=== PATIENT | female | born 1940 | race Hispanic/Latino ===

== ENCOUNTER 2017-12-19 11:57 | Emergency (ER) | payer MEDICARE ==
[2017-12-19] MEDS ORDERED: MECLIZINE HCL 25 MG TABLET ONE (12:30)
[2017-12-19 12:46] LABS: EOSINOPHILS % (AUTO) 1.4 % (0.0-8.0); HEMATOCRIT 33.2 % (36-48); LYMPHOCYTES % (AUTO) 39.9 % (21.0-51.0); MEAN CORPUSCULAR HEMOGLOBIN 32.3 pg (27.0-33.0); MEAN CORPUSCULAR HGB CONC 35.5 g/dL (32.0-36.0); MONOCYTES % (AUTO) 7.5 % (3.0-13.0); NEUTROPHILS % (AUTO) 50.2 % (40.0-77.0); PLATELET COUNT (AUTO) 169 K/uL (130-400); RED BLOOD CELL COUNT(AUTO) 3.65 MIL/uL (4.00-5.50); RED CELL DISTRIBUTION WIDTH 12.4 % (11.0-15.5); WHITE BLOOD COUNT (AUTO) 5.9 K/uL (4.8-10.8)
[2017-12-19 12:56] LABS: PARTIAL THROMBOPLASTIN TIME 24.7 SEC (26.3-35.5); PROTHROMBIN TIME 10.5 SEC (9.6-11.6)
[2017-12-19 12:58] LABS: CREATININE 0.7 mg/dL (0.5-1.5); POTASSIUM 3.3 mmol/L (3.5-5.1)
[2017-12-19 13:12] LABS: ALBUMIN 3.7 g/dL (3.5-5.0); BILIRUBIN,TOTAL 0.4 mg/dL (0.2-1.0); CREATINE KINASE MB 1.9 ng/mL (0.5-3.6); TOTAL PROTEIN, SERUM 7.3 g/dL (6.0-8.3)
== END 2017-12-19 15:38 | disposition home or self-care (01) ==
LOC: EDH 11:57
DX: H81.10 Benign paroxysmal vertigo, unspecified ear (principal); R00.2 Palpitations; Z79.84 Long term (current) use of oral hypoglycemic drugs; Z79.899 Other long term (current) drug therapy; Z98.890 Other specified postprocedural states
CPT/HCPCS: 36415; 70450; 71046; 80053; 82550; 82553; 84484; 85025; 85610; 85730; 87804; 93005

== ENCOUNTER 2018-02-09 16:00 | Inpatient (IN) | payer MEDICARE ==
[~2018-02-09] VITALS: Ht 151.1 cm; Wt 67.9 kg
[2018-02-09 15:53] VITALS: BP 123/54
[2018-02-09 16:03] LABS: BASOPHILS % (AUTO) 0.7 % (0.0-5.0); EOSINOPHILS % (AUTO) 1.7 % (0.0-8.0); HEMATOCRIT 33.4 % (36-48); LYMPHOCYTES % (AUTO) 36.8 % (21.0-51.0); MEAN CORPUSCULAR HEMOGLOBIN 31.7 pg (27.0-33.0); MEAN CORPUSCULAR HGB CONC 34.5 g/dL (32.0-36.0); MONOCYTES % (AUTO) 6.1 % (3.0-13.0); NEUTROPHILS % (AUTO) 54.7 % (40.0-77.0); PLATELET COUNT (AUTO) 154 K/uL (130-400); RED BLOOD CELL COUNT(AUTO) 3.63 MIL/uL (4.00-5.50); RED CELL DISTRIBUTION WIDTH 12.6 % (11.0-15.5); WHITE BLOOD COUNT (AUTO) 6.3 K/uL (4.8-10.8)
[2018-02-09 16:03] LABS: APPEARANCE,URINE Clear (CLEAR); BILIRUBIN,URINE Negative (NEGATIVE); COLOR,URINE Yellow (YELLOW); GLUCOSE, URINE (UA) TRACE mg/dL (NEGATIVE); KETONES,URINE Negative (NEGATIVE); LEUKOCYTE ESTERASE ,URINE Negative (NEGATIVE); NITRATE,URINE Negative (NEGATIVE); OCCULT BLOOD,URINE Trace (NEGATIVE); PROTEIN,URINE Negative (NEGATIVE); UROBILINOGEN,URINE 0.2 mg/dL (0.2-1.0)
[2018-02-09 16:12] LABS: BACTERIA,URINE Rare /HPF (None Seen); RBC,URINE None Seen /HPF (0-1); SQUAMOUS EPITHELIAL CELL,UR 0-2 /HPF (0-2); WBC,URINE 0-1 /HPF (0-1)
[2018-02-09 16:14] LABS: CREATININE 0.9 mg/dL (0.5-1.5); POTASSIUM 4.1 mmol/L (3.5-5.1)
[2018-02-09] MEDS ORDERED: METF500T6 PO (16:17)
[2018-02-09] MEDS ORDERED: LISI10TA7 PO (16:17)
[2018-02-09] MEDS ORDERED: LOVA40TA2 PO (16:17)
[2018-02-09] MEDS ORDERED: FISH1CAP49 PO (16:17)
[2018-02-09 16:18] LABS: INR 0.96 (0.85-1.15); PROTHROMBIN TIME 10.1 SEC (9.6-11.6)
[2018-02-10] VITALS (46 sets, daily range): BP systolic 91–128; BP diastolic 32–64
[2018-02-10] MEDS: CEFAZOLIN SODIUM 1 GM VIAL IVP SCH ×3 (09:30→21:20)
[2018-02-10] MEDS ORDERED: SODIUM CHLORIDE 0.9% 1000ML 1,000 ML IV ONE (09:42)
[2018-02-10] MEDS ORDERED: FOLI1TAB15 PO (10:00)
[2018-02-10] MEDS ORDERED: ACETAMINOPHEN EXTRA STRENGTH 500 MG TABLET ONE (11:51)
[2018-02-10] MEDS ORDERED: KETOROLAC TROMETHAMINE 15MG/ML ONE (11:52)
[2018-02-10] MEDS ORDERED: CELECOXIB 200 MG CAP ONE (11:52)
[2018-02-10] MEDS ORDERED: OXYCODONE HCL 10 MG TAB.SR.12H PO ONE (11:52)
[2018-02-10] MEDS ORDERED: CEFAZOLIN SODIUM 1 GM VIAL ONE (12:44)
[2018-02-10] MEDS ORDERED: TRANEXAMIC ACID 1000MG/10ML IV ONE (12:44)
[2018-02-10] MEDS ORDERED: BUPIVACAINE/EPI/PF 0.25% 30ML VIAL IJ ONE (12:44)
[2018-02-10] MEDS ORDERED: PROPOFOL 10 MG/ML 20ML VIAL IV ONE (13:12)
[2018-02-10] MEDS ORDERED: MIDAZOLAM HCL 1 MG/ML 2ML VIAL ONE (13:12)
[2018-02-10] MEDS ORDERED: FENTANYL CITRATE PF 50 MCG/1 ML 2ML VIAL ONE ×4 (13:12→15:46)
[2018-02-10] MEDS ORDERED: EPHEDRINE SULFATE 50 MG/ML AMPULE ONE ×2 (13:23→19:07)
[2018-02-10] MEDS ORDERED: CEFAZOLIN SODIUM 1 GM VIAL IRRIG ONE (14:19)
[2018-02-10] MEDS ORDERED: ROCURONIUM BROMIDE 10MG/1ML 5ML VL ONE ×2 (14:33→14:34)
[2018-02-10] MEDS ORDERED: GLYCOPYRROLATE 0.2 MG/ML 5 ML VIAL ONE (14:33)
[2018-02-10] MEDS ORDERED: LIDOCAINE PF 2% 5ML ABBOJECT ONE (14:33)
[2018-02-10] MEDS ORDERED: ROPIVACAINE 0.5% 5MG/ML 30ML IJ ONE (14:33)
[2018-02-10] MEDS ORDERED: NEOSTIGMINE 5MG/5ML SYR IV ONE (14:33)
[2018-02-10] MEDS ORDERED: SODIUM CHLORIDE 0.9% 10 ML VIAL ONE (14:33)
[2018-02-10] MEDS ORDERED: PHENYLEPHRINE HCL 10 MG/ML 1ML VIAL IV ONE (14:33)
[2018-02-10] MEDS ORDERED: ESMOLOL HCL 10 MG/ML 10 ML VIAL ONE (15:24)
[2018-02-10] MEDS ORDERED: ACETAMINOPHEN EXTRA STRENGTH 500 MG TABLET PO PRN (16:30)
[2018-02-10] MEDS ORDERED: FERROUS FUMARATE 324 MG TABLET PO PRN (16:30)
[2018-02-10] MEDS ORDERED: TEMAZEPAM 15 MG CAPSULE PO PRN (16:30)
[2018-02-10] MEDS ORDERED: POTASSIUM CHLORIDE 20MEQ/100ML 100 ML IV PRN (16:30)
[2018-02-10] MEDS ORDERED: DiphenhydrAMINE HCL 50 MG/ML VIAL IVP PRN (16:30)
[2018-02-10] MEDS ORDERED: PROMETHAZINE HCL 25 MG/ML 1ML AMPULE IM PRN (16:30)
[2018-02-10] MEDS ORDERED: POTASSIUM CHLORIDE 10% ELIXIR 20 MEQ/15 ML UDCUP PO PRN (16:30)
[2018-02-10] MEDS ORDERED: KETOROLAC TROMETHAMINE 15MG/ML IV PRN (16:30)
[2018-02-10] MEDS ORDERED: OXYCODONE HCL 5 MG TAB PO PRN (16:30)
[2018-02-10] MEDS ORDERED: LIDOCAINE HCL-MPF 1% 2ML VIAL IVP PRN (16:30)
[2018-02-10] MEDS ORDERED: DIPHENHYDRAMINE HCL 25 MG CAPSULE PO PRN (16:30)
[2018-02-10] MEDS: INSULIN HUMULIN R 100 UNIT/ML 3ML SQ SCH ×2 (16:30→21:00)
[2018-02-10] MEDS ORDERED: NALOXONE HCL 0.4 MG/1 ML ML ONE (17:52)
[2018-02-10] MEDS: SODIUM CHLORIDE 0.9% 1000ML 1,000 ML IV SCH (21:07)
[2018-02-10] MEDS ORDERED: CEFAZOLIN 2GM / 50 ML 50 ML IV SCH (21:30)
[2018-02-11 00:40] VITALS: BP 101/53
[2018-02-11] MEDS: PREGABALIN 25 MG CAP PO SCH ×3 (02:09→19:29)
[2018-02-11] MEDS: CELECOXIB 200 MG CAP PO SCH ×3 (02:09→19:28)
[2018-02-11] MEDS: FAMOTIDINE 20MG TAB 20 MG TAB PO SCH ×3 (02:09→19:28)
[2018-02-11] MEDS: ASPIRIN 325 MG TABLET PO SCH ×3 (02:09→19:28)
[2018-02-11] MEDS: SODIUM CHLORIDE 0.9% 1000ML 1,000 ML IV SCH (02:11)
[2018-02-11 04:00] VITALS: BP 116/55
[2018-02-11] MEDS: OXYCODONE HCL 5 MG TAB PO PRN ×2 (04:03→19:29)
[2018-02-11] MEDS: CEFAZOLIN SODIUM 1 GM VIAL IVP SCH (04:55)
[2018-02-11] MEDS: INSULIN HUMULIN R 100 UNIT/ML 3ML SQ SCH ×4 (05:58→21:00)
[2018-02-11 06:13] LABS: CREATININE 0.8 mg/dL (0.5-1.5); POTASSIUM 4.7 mmol/L (3.5-5.1)
[2018-02-11 06:35] LABS: MEAN CORPUSCULAR HEMOGLOBIN 31.4 pg (27.0-33.0); MEAN CORPUSCULAR HGB CONC 34.4 g/dL (32.0-36.0); MEAN CORPUSCULAR VOLUME 91.2 fL (79-99); PLATELET COUNT (AUTO) 104 K/uL (130-400); RED BLOOD CELL COUNT(AUTO) 2.23 MIL/uL (4.00-5.50); RED CELL DISTRIBUTION WIDTH 12.5 % (11.0-15.5); WHITE BLOOD COUNT (AUTO) 9.2 K/uL (4.8-10.8)
[2018-02-11 06:39] LABS: HEMATOCRIT 20.3 % (36-48)
[2018-02-11 08:02] VITALS: BP 108/52
[2018-02-11] MEDS: LISINOPRIL 10 MG TABLET PO SCH (08:35)
[2018-02-11] MEDS: FISH OIL 1000 MG/CAP PO SCH (08:35)
[2018-02-11] MEDS: CALCIUM CARBONATE 500 MG TABLET PO PRN ×2 (08:35→19:29)
[2018-02-11] MEDS: TRAMADOL HCL 50 MG TABLET PO PRN (08:35)
[2018-02-11] MEDS: POLYETHYLENE GLYCOL 3350 17 GM POWD.PACK PO SCH (08:36)
[2018-02-11 11:38] VITALS: BP 85/51
[2018-02-11] MEDS: PSYLLIUM SEED 1 EACH PACKET PO SCH (11:48)
[2018-02-11] MEDS: FOLIC ACID 1 MG TABLET PO SCH (11:48)
[2018-02-11] MEDS: FUROSEMIDE 10 MG/ML 2ML VIAL IV SCH ×2 (13:59→17:30)
[2018-02-11] MEDS: METFORMIN HCL 500 MG TABLET PO SCH (17:14)
[2018-02-11 17:28] VITALS: BP 102/56
[2018-02-11] MEDS: ATORVASTATIN CALCIUM 10 MG TABLET PO SCH (19:34)
[2018-02-11 20:00] VITALS: BP 128/52
[2018-02-12] VITALS (7 sets, daily range): BP systolic 87–113; BP diastolic 39–71
[2018-02-12 05:01] LABS: HEMATOCRIT 25.9 % (36-48); MEAN CORPUSCULAR HEMOGLOBIN 30.9 pg (27.0-33.0); MEAN CORPUSCULAR HGB CONC 35.4 g/dL (32.0-36.0); MEAN CORPUSCULAR VOLUME 87.1 fL (79-99); PLATELET COUNT (AUTO) 84 K/uL (130-400); RED BLOOD CELL COUNT(AUTO) 2.98 MIL/uL (4.00-5.50); RED CELL DISTRIBUTION WIDTH 13.2 % (11.0-15.5); WHITE BLOOD COUNT (AUTO) 10.1 K/uL (4.8-10.8)
[2018-02-12 05:12] LABS: CREATININE 0.8 mg/dL (0.5-1.5); POTASSIUM 3.5 mmol/L (3.5-5.1)
[2018-02-12] MEDS: INSULIN HUMULIN R 100 UNIT/ML 3ML SQ SCH ×4 (05:45→21:00)
[2018-02-12] MEDS: POTASSIUM CHLORIDE 20 MEQ ERTAB PO PRN ×2 (06:09→19:39)
[2018-02-12] MEDS: POLYETHYLENE GLYCOL 3350 17 GM POWD.PACK PO SCH (08:14)
[2018-02-12] MEDS: ASPIRIN 325 MG TABLET PO SCH ×2 (08:14→22:02)
[2018-02-12] MEDS: FISH OIL 1000 MG/CAP PO SCH (08:14)
[2018-02-12] MEDS: CELECOXIB 200 MG CAP PO SCH ×2 (08:14→22:02)
[2018-02-12] MEDS: FAMOTIDINE 20MG TAB 20 MG TAB PO SCH ×2 (08:14→22:01)
[2018-02-12] MEDS: FOLIC ACID 1 MG TABLET PO SCH (08:17)
[2018-02-12] MEDS: LISINOPRIL 10 MG TABLET PO SCH (09:00)
[2018-02-12] MEDS: PREGABALIN 25 MG CAP PO SCH ×2 (10:24→22:02)
[2018-02-12] MEDS: PSYLLIUM SEED 1 EACH PACKET PO SCH (12:24)
[2018-02-12] MEDS ORDERED: BISACODYL 5 MG TABLET.DR PO PRN (16:30)
[2018-02-12] MEDS: METFORMIN HCL 500 MG TABLET PO SCH (17:00)
[2018-02-12] MEDS: CALCIUM CARBONATE 500 MG TABLET PO PRN (19:39)
[2018-02-12] MEDS: ATORVASTATIN CALCIUM 10 MG TABLET PO SCH (22:02)
[2018-02-12] MEDS: TRAMADOL HCL 50 MG TABLET PO PRN (22:05)
[2018-02-13] MEDS ORDERED: BISACODYL 10 MG SUPP.RECT RC PRN (16:30)
== END 2018-02-13 01:15 | DRG 470 ==
LOC: EDSTATUS 16:00 → DAHIP 02-10 08:17 → 4AH 02-10 18:27
PROVIDERS: ADMIT Orthopaedic Surgery; ATTEND Orthopaedic Surgery
PROC: 0SRB0JZ Replacement of Left Hip Joint with Synthetic Substitute, Open Approach (ICD-10-PCS; principal; 2018-02-10 13:00)
PROC: 30233N1 Transfusion of Nonautologous Red Blood Cells into Peripheral Vein, Percutaneous Approach (ICD-10-PCS; 2018-02-11)
DX: M16.12 Unilateral primary osteoarthritis, left hip (principal); E11.40 Type 2 diabetes mellitus with diabetic neuropathy, unspecified; I10 Essential (primary) hypertension; E78.5 Hyperlipidemia, unspecified; M54.16 Radiculopathy, lumbar region; M19.90 Unspecified osteoarthritis, unspecified site; F32.9 Major depressive disorder, single episode, unspecified; F41.9 Anxiety disorder, unspecified; M81.0 Age-related osteoporosis without current pathological fracture; E53.8 Deficiency of other specified B group vitamins; G89.29 Other chronic pain; R26.9 Unspecified abnormalities of gait and mobility; E55.9 Vitamin D deficiency, unspecified; Z83.3 Family history of diabetes mellitus; Z82.49 Family history of ischemic heart disease and other diseases of the circulatory system; Z90.710 Acquired absence of both cervix and uterus; Z79.4 Long term (current) use of insulin
CPT/HCPCS: 36415; 36430; 73503; 80048; 81001; 82948; 85025; 85027; 85610; 85730; 86850; 86900; 86901; 86922; 88304; 88311; 97039; A4218; A4344; C1776; J0690; J1885; J1940; J2001; J2250; J2310; J2370; J2704; J2710; J2795; J3010; J3490; J7030; P9016

== ENCOUNTER 2020-06-13 10:00 | Observation (INO) | payer OTHER, MEDICARE ==
[~2020-06-13] VITALS: Ht 149.9 cm; Wt 66.2 kg
[~2020-06-13 10:00] MED LIST: METF-444 PO
[2020-06-13 10:52] LABS: BASOPHILS % (AUTO) 0.9 % (0.0-5.0); EOSINOPHILS % (AUTO) 1.8 % (0.0-8.0); HEMATOCRIT 35.5 % (36-48); MONOCYTES % (AUTO) 7.1 % (3.0-13.0); NEUTROPHILS % (AUTO) 56.8 % (40.0-77.0); PLATELET COUNT (AUTO) 147 K/uL (130-400); RED BLOOD CELL COUNT(AUTO) 3.66 MIL/uL (4.00-5.50); RED CELL DISTRIBUTION WIDTH 12.8 % (11.0-15.5); WHITE BLOOD COUNT (AUTO) 5.5 K/uL (4.8-10.8)
[2020-06-13 11:03] LABS: APPEARANCE,URINE Clear (CLEAR); BILIRUBIN,URINE Negative (NEGATIVE); COLOR,URINE Yellow (YELLOW); GLUCOSE, URINE (UA) TRACE mg/dL (NEGATIVE); KETONES,URINE Negative (NEGATIVE); LEUKOCYTE ESTERASE ,URINE Trace (NEGATIVE); NITRATE,URINE Negative (NEGATIVE); OCCULT BLOOD,URINE Nonhemolyzed Trace (NEGATIVE); PH,URINE 5.5 (5.0-8.0); PROTEIN,URINE Trace mg/dL (NEGATIVE)
[2020-06-13 11:03] LABS: INR 0.98 (0.85-1.15); PROTHROMBIN TIME 10.6 SEC (9.6-11.6)
[2020-06-13 11:05] LABS: CREATININE 0.7 mg/dL (0.5-1.5); POTASSIUM 4.3 mmol/L (3.5-5.1)
[2020-06-13 11:21] LABS: BACTERIA,URINE Rare /HPF (None Seen); RBC,URINE 0-1 /HPF (0-1); SQUAMOUS EPITHELIAL CELL,UR Few /HPF (0-2)
--- NOTE | 2020-06-19 10:20 | NUR ---
REPORT CALLED DR CHUNG AND REPORTED UA. RECEIVED NEW ORDERS TO COLLECT URINE FOR CULTURE AND GIVE GENTAMYCIN 240MG IVPB X1 IN AM
[2020-06-19 13:26] VITALS: BP 131/51
[2020-06-19] MEDS ORDERED: ROSU20TA23 PO (13:54)
[2020-06-19] MEDS ORDERED: SITA25TA5 PO (13:54)
[2020-06-20] VITALS (33 sets, daily range): BP systolic 94–142; BP diastolic 50–94
[2020-06-20] MEDS ORDERED: CEFAZOLIN SODIUM 1 GM VIAL IVP ONE (08:00)
[2020-06-20] MEDS ORDERED: GENTAMICIN SULFATE 240 MG in SODIUM CHLORIDE 0.9% 100 ML IV PRN (08:00)
[2020-06-20] MEDS ORDERED: SODIUM CHLORIDE 0.9% 1000ML 1,000 ML IV ONE (09:00)
--- NOTE | 2020-06-20 09:30 | NUR ---
preop pt arrived via w/c. pt oriented to room and call light. pt in no distress at this time. urine collected and sent for culture. type and screen also will be collected. will continue to monitor pt
[2020-06-20] MEDS ORDERED: CEFAZOLIN SODIUM 1 GM VIAL ONE (12:47)
[2020-06-20] MEDS ORDERED: LIDOCAINE PF 2% 5ML ABBOJECT ONE (13:57)
[2020-06-20] MEDS ORDERED: SUCCINYLCHOLINE CHLORIDE 20 MG/ML 10 ML VIAL ONE (13:57)
[2020-06-20] MEDS ORDERED: PROPOFOL 10 MG/ML 20ML VIAL IV ONE (13:58)
[2020-06-20] MEDS ORDERED: ROCURONIUM 10MG/1ML SYR 10 MG/ML ML ONE (13:58)
[2020-06-20] MEDS ORDERED: TRANEXAMIC ACID 1000MG/10ML ONE ×2 (14:06→17:43)
[2020-06-20] MEDS ORDERED: CEFAZOLIN SODIUM 1 GM VIAL IRRIG ONE (15:30)
[2020-06-20] MEDS ORDERED: FENTANYL CITRATE PF 50 MCG/1 ML 2ML VIAL ONE (15:33)
[2020-06-20] MEDS ORDERED: ONDANSETRON HCL 4 MG/2 ML VIAL ONE ×2 (16:59→19:26)
[2020-06-20] MEDS ORDERED: NEOSTIGMINE 5MG/5ML SYR IV ONE (16:59)
[2020-06-20] MEDS ORDERED: GLYCOPYRROLATE 1 MG/5 ML SYRINGE ONE (16:59)
[2020-06-20] MEDS ORDERED: MEPERIDINE-PF 25 MG/ML SYG ONE ×2 (18:05→18:14)
[2020-06-20] MEDS: SODIUM CHLORIDE 0.9% 1000ML 1,000 ML IV SCH (18:58)
[2020-06-20] MEDS ORDERED: DiphenhydrAMINE HCL 50 MG/ML VIAL IVP PRN (19:00)
[2020-06-20] MEDS ORDERED: OXYCODONE HCL 5 MG TAB PO PRN (19:00)
[2020-06-20] MEDS ORDERED: ONDANSETRON HCL 4 MG/2 ML VIAL IVP PRN (19:00)
[2020-06-20] MEDS ORDERED: FERROUS FUMARATE 324 MG TABLET PO PRN (19:00)
[2020-06-20] MEDS ORDERED: POTASSIUM CHLORIDE 10% ELIXIR 20 MEQ/15 ML UDCUP PO PRN (19:00)
[2020-06-20] MEDS: ACETAMINOPHEN EXTRA STRENGTH 500 MG TABLET PO SCH (19:00)
[2020-06-20] MEDS ORDERED: TRAMADOL HCL 50 MG TABLET PO PRN (19:00)
[2020-06-20] MEDS ORDERED: POTASSIUM CHLORIDE 20 MEQ ERTAB PO PRN (19:00)
[2020-06-20] MEDS ORDERED: POTASSIUM CHLORIDE 20MEQ/100ML 100 ML IV PRN (19:00)
[2020-06-20] MEDS ORDERED: LIDOCAINE HCL-MPF 1% 2ML VIAL IV PRN (19:00)
--- NOTE | 2020-06-20 20:15 | NUR ---
post op received patient from pacu via bed, patient awake, alert, ox3, no sob, no c/o pain at this time, right hip with selvin dressing with negative pressure, ble scds in place, ivf infusing well, teach patient plan of care , pain management and expected outcome, patient verbalizes understanding via teach back
[2020-06-20] MEDS: INSULIN HUMULIN R 100 UNIT/ML 3ML SQ SCH (21:00)
[2020-06-20] MEDS: OXYCODONE HCL 5 MG TAB PO PRN (21:17)
[2020-06-20] MEDS: ASPIRIN 81MG TAB.CHEW PO SCH (21:17)
[2020-06-20] MEDS: CELECOXIB 200 MG CAP PO SCH (21:17)
[2020-06-20] MEDS: PREGABALIN 25 MG CAP PO SCH (21:17)
[2020-06-20] MEDS: KETOROLAC TROMETHAMINE 15MG/ML IV PRN (22:45)
[2020-06-21] VITALS (8 sets, daily range): BP systolic 92–128; BP diastolic 41–75
[2020-06-21] MEDS: CEFAZOLIN SODIUM 1 GM VIAL IVP SCH ×2 (00:20→08:45)
[2020-06-21] MEDS: SODIUM CHLORIDE 0.9% 1000ML 1,000 ML IV SCH ×2 (01:16→14:58)
[2020-06-21] MEDS: OXYCODONE HCL 5 MG TAB PO PRN ×2 (01:42→08:48)
[2020-06-21] MEDS: ACETAMINOPHEN EXTRA STRENGTH 500 MG TABLET PO SCH ×3 (01:43→19:14)
[2020-06-21 04:02] LABS: HEMATOCRIT 23.8 % (36-48); MEAN CORPUSCULAR HEMOGLOBIN 32.3 pg (27.0-33.0); MEAN CORPUSCULAR VOLUME 94.8 fL (79-99); RED BLOOD CELL COUNT(AUTO) 2.51 MIL/uL (4.00-5.50); RED CELL DISTRIBUTION WIDTH 12.5 % (11.0-15.5)
[2020-06-21 04:23] LABS: CREATININE 0.7 mg/dL (0.5-1.5); POTASSIUM 4.2 mmol/L (3.5-5.1)
[2020-06-21] MEDS: KETOROLAC TROMETHAMINE 15MG/ML IV PRN (04:34)
[2020-06-21] MEDS: INSULIN HUMULIN R 100 UNIT/ML 3ML SQ SCH ×4 (06:02→21:00)
[2020-06-21] MEDS: FAMOTIDINE 20MG TAB 20 MG TAB PO SCH (08:45)
[2020-06-21] MEDS: METFORMIN HCL 500 MG TABLET PO SCH (08:45)
[2020-06-21] MEDS: CALCIUM CARBONATE 500 MG TABLET PO PRN (08:45)
[2020-06-21] MEDS: ASPIRIN 81MG TAB.CHEW PO SCH ×2 (08:46→20:51)
[2020-06-21] MEDS: LINAGLIPTIN 5 MG TABLET PO SCH (08:46)
[2020-06-21] MEDS: POLYETHYLENE GLYCOL 3350 17 GM POWD.PACK PO SCH (08:50)
[2020-06-21] MEDS: CELECOXIB 200 MG CAP PO SCH ×2 (08:50→20:52)
[2020-06-21] MEDS: PREGABALIN 25 MG CAP PO SCH ×2 (08:51→20:52)
--- NOTE | 2020-06-21 11:00 | NUR ---
DCP CM met with pt discussed dc plans. Pt is independent prior to surgery, lives at home alone, son live next door. Pt has a shower chair, cane, cpap. Denies any other equipments/services. Requested short term rehab placement prior to dc home, RJ signed for [facility] and [facility] DME for standard walker no wheels. DC plan to SNF and DME. CM to cont to follow up. Addendum: 06/21/20 at 1122 by JOSE MARTIN JALLOH LVN CM Amended: Links added.
--- NOTE | 2020-06-21 11:01 | NUR ---
CM Note: [facility] pending approval Faxed order, clinicals, PT, PAS[facility] to [facility], confirmation received. Spoke to [facility] w/GP, received request, aware dcp today/once approved. Made aware pending Covid Transfer form to be signed by Dr Solorzano, will send once available. Made aware forwarded order for DME to [facility], GP to coordinate w/DME once pt closer to dc from facility. Made aware ordered covid test for today, as last covid pre op was done 06/13, pending result to be faxed once available. Pt pending approval at this time. EMS filled out in case needed, pending to be faxed w/current date, primary nurse to call [facility] if EMS needed, otherwise pt may go by GP transport van once ready to DC. Primary nurse aware. CM to cont to follow up.
--- NOTE | 2020-06-21 11:02 | NUR ---
CM Note: [facility] CM faxed script and clinicals to [facility], confirmation received, GP aware to follow up w/DME for standard walker no wheels and 3 in 1 chair once pt closer to DC from GP. Patient aware. CM to cont to follow up.
--- NOTE | 2020-06-21 11:19 | NUR ---
[id number] patient signed REMY Letter, I faxed REMY Letter to [id number] and placed in chart under consent tab.
--- NOTE | 2020-06-21 18:57 | NUR ---
CM Note: [facility] approval CM spoke to [facility] w/[facility], pt has approval, pending covid result at this time, will send result once available. EMS filled out pending to be faxed w/current date once pt ready to DC. Primary nurse aware. CM to cont to follow up.
[2020-06-21] MEDS ORDERED: ATORVASTATIN CALCIUM 40 MG TABLET PO SCH (21:00)
[2020-06-22 00:28] VITALS: BP 102/48
[2020-06-22] MEDS: ACETAMINOPHEN EXTRA STRENGTH 500 MG TABLET PO SCH ×2 (03:28→10:37)
[2020-06-22 04:11] LABS: HEMATOCRIT 21.6 % (36-48); MEAN CORPUSCULAR HEMOGLOBIN 31.7 pg (27.0-33.0); MEAN CORPUSCULAR HGB CONC 32.9 g/dL (32.0-36.0); MEAN CORPUSCULAR VOLUME 96.4 fL (79-99); RED BLOOD CELL COUNT(AUTO) 2.24 MIL/uL (4.00-5.50); RED CELL DISTRIBUTION WIDTH 12.4 % (11.0-15.5); WHITE BLOOD COUNT (AUTO) 9.4 K/uL (4.8-10.8)
[2020-06-22 04:28] VITALS: BP 103/48
[2020-06-22] MEDS: CALCIUM CARBONATE 500 MG TABLET PO PRN (05:24)
[2020-06-22] MEDS: INSULIN HUMULIN R 100 UNIT/ML 3ML SQ SCH ×3 (07:11→16:30)
[2020-06-22 08:17] VITALS: BP 92/50
[2020-06-22] MEDS: METFORMIN HCL 500 MG TABLET PO SCH (09:00)
[2020-06-22] MEDS: FAMOTIDINE 20MG TAB 20 MG TAB PO SCH (10:36)
[2020-06-22] MEDS: POLYETHYLENE GLYCOL 3350 17 GM POWD.PACK PO SCH (10:36)
[2020-06-22] MEDS: ASPIRIN 81MG TAB.CHEW PO SCH (10:36)
[2020-06-22] MEDS: CELECOXIB 200 MG CAP PO SCH (10:36)
[2020-06-22] MEDS: LINAGLIPTIN 5 MG TABLET PO SCH (10:36)
[2020-06-22] MEDS: PREGABALIN 25 MG CAP PO SCH (10:36)
[2020-06-22] MEDS: OXYCODONE HCL 5 MG TAB PO PRN (10:37)
[2020-06-22] MEDS ORDERED: FERR324T10 PO (10:55)
[2020-06-22] MEDS ORDERED: ASPI-1005 PO (10:55)
[2020-06-22] MEDS ORDERED: HYDR-4457 PO (10:55)
[2020-06-22 11:04] VITALS: BP 113/42
--- NOTE | 2020-06-22 12:04 | NUR ---
DC PLAN PATIENT RECEIVING BLOOD LET [facility] KNOW. SAID WOULD PREFER TO TRANSFER IN THE MORNING. LET DR. CHUNG KNOW. SAID NO PATIENT IS STABLE ONLY ONE UNIT. NO REACTION SITTING UP IN CHAIR. LET [facility] SAID OKAY TO TRANSFER IF MD FEELS SAFE TO TRANSFER. LET [facility] KNOW OF ACCEPTANCE. FAXED COVID FORM TO [facility]. SAID PATIENT CAN GO VIA [facility]AN SINCE SHE IS SITTING UP. Addendum: 06/22/20 at 1207 by JEN HOOPER RN CM Amended: Links added.
[2020-06-22 16:38] VITALS: BP 109/45
--- NOTE | 2020-06-22 17:30 | NUR ---
NOTE DISCHARGE INSTRUCTIONS GIVEN TO PATIENT AT THIS TIME. SHE RECEIVED BLOOD TRANSFUSION EARLIER TODAY SHE WAS ASYMPTOMATIC BUT DR CHUNG WANTED HER TO RECEIVE ONE BEFORE TRANSFER TO [facility]. SPOKE TO NURSE BASS AT [facility] AND REPORT WAS GIVEN. REFER TO DC SUMMARY FOR DETAILS.
[2020-06-23] MEDS ORDERED: BISACODYL 10 MG SUPP.RECT RC PRN (19:00)
== END 2020-06-22 18:40 ==
LOC: EDSTATUS 10:00 → DAHIP 06-20 08:30 → EDSTATUS 06-20 10:00 → 3AH 06-20 19:17
PROVIDERS: ADMIT Orthopaedic Surgery; ATTEND Orthopaedic Surgery
DX: M16.11 Unilateral primary osteoarthritis, right hip (principal); Z20.828 Contact with and (suspected) exposure to other viral communicable diseases; D62 Acute posthemorrhagic anemia; E11.9 Type 2 diabetes mellitus without complications; E78.00 Pure hypercholesterolemia, unspecified; E78.5 Hyperlipidemia, unspecified; I10 Essential (primary) hypertension; M81.0 Age-related osteoporosis without current pathological fracture; Z90.710 Acquired absence of both cervix and uterus; Z96.642 Presence of left artificial hip joint
CPT/HCPCS: 27130; 36415 ×4; 36430; 73503; 80048 ×2; 81001; 82948 ×10; 85025; 85027 ×2; 85610; 86850; 86900; 86901; 86923; 87088; 87641; 88304; 88311; 96365; 96375 ×2; 96376; 97039 ×4; 97116 ×3; 97161; 97530; A4213; A4215; A4221; A4222; A4223; A4600; A4649 ×6; A4663; A4930 ×2; A5120; A9272; C1776; G0378 ×17; G8978; G8979; G8980; G8981; G8982; G8983; J0330; J0690 ×5; J1580; J1885 ×2; J2001; J2175 ×2; J2405 ×2; J2704; J2710; J3010; J3490 ×3; J7030 ×3; P9016; U0003 ×2

== ENCOUNTER → 2022-10-28 | Outpatient (CLI) | payer OTHER, MEDICARE ==
[~2022-10-28] MED LIST changes: +ASPI-1005 PO; +FERR324T10 PO; +HYDR-4457 PO; +ROSU20TA23 PO; +SITA25TA5 PO
== END | disposition home or self-care (01) ==
LOC: RAH 14:13
PROVIDERS: ATTEND Internal Medicine
DX: N64.52 Nipple discharge (principal)
CPT/HCPCS: 77066

== ENCOUNTER 2023-05-06 18:07 | Emergency (ER) | payer MEDICARE, OTHER ==
[~2023-05-06] VITALS: Ht 149.9 cm; Wt 60.3 kg
[2023-05-06] MEDS ORDERED: KETOROLAC 15MG/ML VIAL (15MG/ML) IV ONE (19:30)
[2023-05-06] MEDS ORDERED: FAMOTIDINE 20MG VIAL IV ONE (19:30)
[2023-05-06] MEDS ORDERED: DIAZEPAM 5 MG/ML 2 ML SYG IVP ONE (19:30)
[2023-05-06] MEDS ORDERED: CYCL10TA16 PO (19:57)
[2023-05-06] MEDS ORDERED: MELO-106 PO (19:57)
[2023-05-06 20:50] VITALS: BP 142/52; PULSE 72; RESP 18
== END 2023-05-06 21:06 | disposition home or self-care (01) ==
LOC: EDH 18:07
DX: G89.29 Other chronic pain (principal); M54.50 Low back pain, unspecified; I10 Essential (primary) hypertension; E11.9 Type 2 diabetes mellitus without complications; E78.00 Pure hypercholesterolemia, unspecified; Z79.82 Long term (current) use of aspirin; Z79.84 Long term (current) use of oral hypoglycemic drugs; Z79.899 Other long term (current) drug therapy; Z90.710 Acquired absence of both cervix and uterus; Z98.890 Other specified postprocedural states
CPT/HCPCS: 99284; 96374; 96375; J3490; J3360; J1885

== ENCOUNTER 2024-08-18 08:38 | Emergency (ER) | payer OTHER ==
[~2024-08-18] VITALS: Ht 149.9 cm; Wt 62.6 kg
[~2024-08-18 08:38] MED LIST changes: +CYCL10TA16 PO; +MELO-106 PO
[2024-08-18] MEDS: BACLOFEN 10 MG TABLET PO SCH (09:25)
[2024-08-18] MEDS: ketOROlac 30MG VIAL (30MG/ML) IVP ONE (09:25)
[2024-08-18] MEDS: morPHINE 2 MG SYG IVP ONE (10:35)
[2024-08-18] MEDS ORDERED: acetaMINOPHEN 500 MG TABLET PO ONE (12:00)
[2024-08-18] MEDS ORDERED: ACET325C6 PO (12:21)
[2024-08-18] MEDS ORDERED: BACL10TA PO (12:21)
[2024-08-18 12:44] VITALS: BP 151/63; PULSE 71; RESP 16; TEMP 98.1; O2SAT 100
== END 2024-08-18 12:46 | disposition home or self-care (01) ==
LOC: EDH 08:38
DX: M62.838 Other muscle spasm (principal); G89.29 Other chronic pain; M54.89 Other dorsalgia; E11.9 Type 2 diabetes mellitus without complications; I10 Essential (primary) hypertension; E78.00 Pure hypercholesterolemia, unspecified; Z79.1 Long term (current) use of non-steroidal anti-inflammatories (NSAID); Z79.82 Long term (current) use of aspirin; Z98.890 Other specified postprocedural states
CPT/HCPCS: 99284; 96374; 96375; 93005; J2270; J1885